=== PATIENT | female | born 1950 | race Asian ===

== ENCOUNTER 2017-09-02 07:57 | Day surgery (SDC) | payer OTHER ==
[2017-09-02 09:52] VITALS: BMI 24.0
[2017-09-02 10:28] VITALS: TEMP 97.5
[2017-09-02 12:13] VITALS: BP 129/67; PULSE 63
--- NOTE | 2017-09-03 16:28 | PATH ---
Surgical Pathology Report Patient Name: VELIA HAWTHORNE [facility]. Rec. #: [id number] /Age/Gender: 1950 (Age: 67) / F Account: [id number] Location: U-ENDOSCOPY Taken: 09/02/2017 Received: 09/02/2017 Reported: 09/03/2017 Physicians: Marcello Huber M.D. Specimen(s) Received A: BX ANTRUM EROSION B: BX BODY C: BX IRREGULAR Z-LINE Clinical History Preoperative diagnosis: Guaiac positive, abdominal pain Postoperative diagnosis: Irregular Z line, erosive gastritis Final Diagnosis A. STOMACH, ANTRUM, EROSION, BIOPSY: GASTRIC ANTRAL MUCOSA WITH MODERATE CHRONIC GASTRITIS, FOCAL ACTIVE/ACUTE INFLAMMATION, ULCERATION, AND REACTIVE CHANGES. IMMUNOHISTOCHEMICAL STAIN FOR H. PYLORI IS NEGATIVE. B. STOMACH, BODY, BIOPSY: GASTRIC BODY MUCOSA WITH MILD CHRONIC GASTRITIS. IMMUNOHISTOCHEMICAL STAIN FOR H. PYLORI IS NEGATIVE. C. ESOPHAGUS, IRREGULAR Z LINE, BIOPSY: SQUAMOCOLUMNAR MUCOSA WITH ACUTE AND CHRONIC INFLAMMATION, AND CHANGES OF MILD REFLUX ESOPHAGITIS. NO INTESTINAL METAPLASIA OR DYSPLASIA IDENTIFIED. Electronically Signed Aziza Aldridge M.D. Gross Description A. Received in formalin, labeled "biopsy antrum or erosion" are 2 clarke, irregular portions of soft tissue measuring 0.2 and 0.3 cm. in greatest dimension. The specimens are submitted in toto in one cassette. B. Received in formalin, labeled "biopsy body" is a clarke, irregular portion of soft tissue measuring 0.3 cm. in greatest dimension. The specimen is submitted in toto in one cassette. C. Received in formalin, labeled "biopsy irregular Z line" are 2 clarke, irregular portions of soft tissue measuring 0.3 and 0.4 cm. in greatest dimension. The specimens are submitted in toto in one cassette. 09/02/201709/02/2017
== END 2017-09-02 11:15 | disposition home or self-care (01) ==
LOC: JASU-ENDO 07:57
PROVIDERS: ATTEND Internal Medicine Gastroenterology
PROC: 0DB68ZX Excision of Stomach, Via Natural or Artificial Opening Endoscopic, Diagnostic (ICD-10-PCS; 2017-09-02)
PROC: 0DB58ZX Excision of Esophagus, Via Natural or Artificial Opening Endoscopic, Diagnostic (ICD-10-PCS; principal; 2017-09-02 09:30)
DX: K92.1 Melena (principal); K29.50 Unspecified chronic gastritis without bleeding; K25.7 Chronic gastric ulcer without hemorrhage or perforation; K21.0 Gastro-esophageal reflux disease with esophagitis; I10 Essential (primary) hypertension; I25.10 Atherosclerotic heart disease of native coronary artery without angina pectoris; E11.9 Type 2 diabetes mellitus without complications; Z79.82 Long term (current) use of aspirin; Z79.84 Long term (current) use of oral hypoglycemic drugs
CPT/HCPCS: 88305-TC; 88342-TC

== ENCOUNTER 2018-02-19 11:04 | Emergency (ER) | payer OTHER ==
[2018-02-19 11:17] VITALS: BP 136/65; PULSE 64; TEMP 98; BMI 23.8
--- NOTE | 2018-02-19 12:00 | PDOC ---
History of Present Illness - General Chief Complaint: Abscess Boil Stated Complaint: CYST ON ABD REGION (PCP SENT) Time Seen by Provider: 02/19/18 11:29 History Source: Patient Exam Limitations: No Limitations - History of Present Illness Initial Comments: 02/19/18 11:54 Patient is a 67-year-old female past medical history of diabetes, who presents emergency department today complaining of an abscess on her right upper abdomen. Patient states this has been there for approximately 2 weeks. She was seen by her primary care doctor for this issue and prescribed Keflex. She states that she finished the Keflex approximately one week ago. Since then the abscess has come to a head and is now draining. She once again spoke to her primary care doctor who recommended coming for drainage of her abscess. Patient notes that her sugars have been elevated into the 300s. Denies fevers, chills, nausea, vomiting, diarrhea with the urgency and hematuria. Past History - Past Medical History Allergies/Adverse Reactions: Allergies Allergy/AdvReac Type Severity Reaction Status Date / Time No Known Allergies Allergy Verified 02/19/18 11:12 Home Medications: Ambulatory Orders Amlodipine Besylate [Norvasc -] 10 mg PO DAILY 09/01/17 Aspirin [Ecotrin] 81 mg PO DAILY 09/01/17 Glipizide/Metformin HCl [Glipizide-Metformin 5-500 mg] 1 each PO DAILY 09/01/17 Simvastatin 10 mg PO DAILY 09/01/17 Tenofovir Disoproxil Fumarate [Viread -] 300 mg PO DAILY 09/01/17 Valsartan [Diovan] 80 mg PO DAILY 09/01/17 Famotidine [Pepcid] 40 mg PO DAILY #1 tablet 09/02/17 Cephalexin Monohydrate [Keflex -] 500 mg PO BID #14 capsule 02/19/18 Sulfamethoxazole/Trimethoprim [Bactrim Ds -] 1 tab PO BID #14 tablet 02/19/18 Cardiac Disorders: Yes (CAD) COPD: No Diabetes: Yes GI Disorders: Yes (TUBULAR ADENOMAS) HTN: Yes Liver Disease: (FATTY LIVER) - Suicide/Smoking/Psychosocial Hx Smoking History: Never smoked Information on smoking cessation initiated: No Hx Alcohol Use: No Drug/Substance Use Hx: No Substance Use Type: None Review of Systems - Review of Systems Able to Perform ROS?: Yes Comments:: 02/19/18 11:50 CONSTITUTIONAL: Absent: fever, chills, diaphoresis, generalized weakness, malaise, loss of appetite HEENT: Absent: rhinorrhea, nasal congestion, throat pain, throat swelling, difficulty swallowing, mouth swelling, ear pain, eye pain, visual Changes CARDIOVASCULAR: Absent: chest pain, loss of consciousness, palpitations, irregular heart rate, peripheral edema RESPIRATORY: Absent: cough, shortness of breath, dyspnea with exertion, orthopnea, wheezing, stridor, hemoptysis GASTROINTESTINAL: Absent: abdominal pain, abdominal distension, nausea, vomiting, diarrhea, constipation, melena, hematochezia GENITOURINARY: Absent: dysuria, frequency, urgency, hesitancy, hematuria, flank pain, genital pain MUSCULOSKELETAL: Absent: myalgia, arthralgia, joint swelling SKIN: Present: Abscess to R abdomen. Absent: rash, itching, pallor HEMATOLOGIC/IMMUNOLOGIC: Absent: easy bleeding, easy bruising, lymphadenopathy, frequent infections ENDOCRINE: Absent: unexplained weight gain, unexplained weight loss, heat intolerance, cold intolerance NEUROLOGIC: Absent: headache, focal weakness or paresthesias, dizziness, unsteady gait, seizure, mental status changes, bladder or bowel incontinence PSYCHIATRIC: Absent: anxiety, depression, suicidal or homicidal ideation, hallucinations. Is the patient limited Turkish proficient: No *Physical Exam - Vital Signs Last Vital Signs Temp Pulse Resp BP Pulse Ox 98 F 64 14 136/65 100 02/19/18 11:12 02/19/18 11:12 02/19/18 11:12 02/19/18 11:12 02/19/18 11:12 - Physical Exam Comments: 02/19/18 11:52 GENERAL: Well developed, well nourished. Awake and alert. No acute distress. NECK: Supple. Full ROM. No JVD. Carotid pulses 2+ and symmetric, without bruits. No thyromegaly. No lymphadenopathy. CARDIOVASCULAR: Regular rate and rhythm. No murmurs, rubs, or gallops. Distal pulses are 2+ and symmetric. PULMONARY: No evidence of respiratory distress. Lungs clear to auscultation bilaterally. No wheezing, rales or rhonchi. ABDOMINAL: Soft. Non-tender. Non-distended. No rebound or guarding. No organomegaly. Normoactive bowel sounds. MUSCULOSKELETAL Normal range of motion at all joints. No bony deformities or tenderness. No CVA tenderness. EXTREMITIES: No cyanosis. No clubbing. No edema. No calf tenderness. SKIN: Quarter sized draining abscess to R upper abdomen. Fluctuant with surrounding induration. Warm and dry. Normal capillary refill. No jaundice. NEUROLOGICAL: Alert, awake, appropriate. Cranial nerves 2-12 intact. No deficits to light touch and temperature in face, upper extremities and lower extremities. No motor deficits in the in face, upper extremities and lower extremities. Normoreflexic in the upper and lower extremities. Normal speech. Toes are down- going bilaterally. Gait is normal without ataxia. PSYCHIATRIC: Cooperative. Good eye contact. Appropriate mood and affect. Procedures - Incision and Drainage I&D Site: Right: Abdomen (upper) Betadine cleansed: Yes Anesthesia: 1% Lidocaine Volume(ml): 7 Blade Size: 11 Attempts: 1 Iodinated Packin in Dressing: Yes Medical Decision Making - Medical Decision Making 02/19/18 13:18 Patient is a 67-year-old female past medical history of non-insulin dependent diabetes, who presents emergency department for abscess to her right upper abdomen for 2 weeks. There is a large fluctuance within the area of induration. Incision and drainage performed. See procedure note below. Patient placed on Bactrim and Keflex and told to follow-up with her primary care doctor. 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 Understands that if she develops fevers, chills, increased shoulder she should return to the emergency department for further evaluation. Surgical consult given. We'll discharge patient home at this time. Patient received all discharge instructions and all questions were answered. Verbal consent obtained. The right upper abdomen was prepared with Betadine prior to incision. 7 mL of lidocaine used to numb the site. Approximately 1-1/2 cm incision made at the base of the abscess for drainage. Large amount of pus and blood was drained from the site. Wound culture was taken. Area was explored and loculations were broken up. The abscess was then flushed with 20 mL of normal saline. Iodinated packing was placed and dressing placed over top. *DC/Admit/Observation/Transfer Diagnosis at time of Disposition: Abscess - Discharge Dispostion Disposition: HOME Condition at time of disposition: Stable Decision to Admit order: No - Referrals Referrals: Alfredo Nogueira MD [Primary Care Provider] - Tyrone Mosquera MD [Staff Physician] - - Patient Instructions Printed Discharge Instructions: DI for Incision and Drainage of a Skin Abscess Additional Instructions: You have cellulitis and an abscess. This is a skin infection. Your abscess was drained today. Please take the Bactrim and Keflex twice a day for one week. Please take all the antibiotics even if you feel better. Wash the area with gentle soap and water. Remove the packing on Friday. You may take Tylenol or Motrin as needed for pain. Please follow up with your primary care doctor in 1 week. Return to the emergency department if you have worsening redness, fevers, increasing pain, elevated blood sugars or have any changes in your symptoms. - Post Discharge Activity
== END 2018-02-19 13:32 | disposition home or self-care (01) ==
LOC: JER 11:04
PROC: 0J980ZZ Drainage of Abdomen Subcutaneous Tissue and Fascia, Open Approach (ICD-10-PCS; principal; 2018-02-19)
DX: L02.211 Cutaneous abscess of abdominal wall (principal); I25.10 Atherosclerotic heart disease of native coronary artery without angina pectoris; I10 Essential (primary) hypertension; E11.9 Type 2 diabetes mellitus without complications; Z79.84 Long term (current) use of oral hypoglycemic drugs; K76.0 Fatty (change of) liver, not elsewhere classified; Z79.82 Long term (current) use of aspirin
CPT/HCPCS: 87070; 87076; 87205; 99281-25